=== PATIENT | female | born 1985 | race Caucasian/White ===

== ENCOUNTER 2018-06-26 06:23 | Day surgery (SDC) | payer OTHER ==
[~2018-06-26 06:23] MED LIST: CATAFLAN PO; ELAVIL PO; FIORICET PO
[2018-06-26] MEDS ORDERED: PERCOCET 5-3251 EACH PO (11:25)
[2018-06-26] MEDS ORDERED: COLACE100 MG PO (11:26)
== END 2018-06-26 16:40 | disposition home or self-care (01) ==
LOC: CIR.AMB 06:23
DX: K64.4 Residual hemorrhoidal skin tags (principal)